=== PATIENT | male | born 2000 | race Caucasian/White ===

== ENCOUNTER 2018-02-15 12:50 | Inpatient (IN) | payer OTHER ==
--- NOTE | 2018-02-15 13:57 | ED ---
Psych HPI - General Source: patient, police, EMS, RN notes reviewed Mode of arrival: EMS Limitations: no limitations <Bal Chavarria - Last Filed: 02/15/18 14:33> <Tevin Ken - Last Filed: 02/15/18 14:41> - General Chief Complaint: Psychiatric Symptoms Stated Complaint: Petitioned Time Seen by Provider: 02/15/18 12:54 - History of Present Illness Initial Comments: This is a 18-year-old male presents emergency Department with police for psychiatric evaluation. Patient is being petition by family secondary to bizarre behavior. Patient currently is manic. Patient history is limited secondary to his flight of ideas. Patient denies being suicidal or homicidal denies drug use or alcohol abuse. He denies any physical complaints. (Bal Chavarria) - Related Data Allergies Allergy/AdvReac Type Severity Reaction Status Date / Time No Known Allergies Allergy Verified 02/15/18 12:56 Review of Systems ROS Other: All systems not noted in ROS Statement are negative. <Bal Chavarria - Last Filed: 02/15/18 14:33> ROS Other: All systems not noted in ROS Statement are negative. <Tevin Ken - Last Filed: 02/15/18 14:41> ROS Statement: Those systems with pertinent positive or pertinent negative responses have been documented in the HPI. Past Medical History Past Medical History: Unable to Obtain History of Any Multi-Drug Resistant Organisms: None Reported Past Psychological History: Anxiety Smoking Status: Current every day smoker Past Alcohol Use History: None Reported Past Drug Use History: Marijuana <Bal Chavarria - Last Filed: 02/15/18 14:33> General Exam Limitations: no limitations General appearance: alert, in no apparent distress Head exam: Present: atraumatic, normocephalic, normal inspection Eye exam: Present: normal appearance, PERRL, EOMI. Absent: scleral icterus, conjunctival injection, periorbital swelling ENT exam: Present: normal exam, normal oropharynx, mucous membranes moist Neck exam: Present: normal inspection. Absent: tenderness, meningismus, lymphadenopathy Respiratory exam: Present: normal lung sounds bilaterally. Absent: respiratory distress, wheezes, rales, rhonchi, stridor Cardiovascular Exam: Present: normal rhythm, tachycardia, normal heart sounds. Absent: systolic murmur, diastolic murmur, rubs, gallop, clicks GI/Abdominal exam: Present: soft, normal bowel sounds. Absent: distended, tenderness, guarding, rebound, rigid Neurological exam: Present: alert, oriented X3, CN II-XII intact, reflexes normal. Absent: motor sensory deficit Psychiatric exam: Present: manic, other (Flight of ideas) Skin exam: Present: warm, dry, intact, normal color. Absent: rash <Bal Chavarria - Last Filed: 02/15/18 14:33> Course <Bal Chavarria - Last Filed: 02/15/18 14:33> <Tevin Ken - Last Filed: 02/15/18 14:41> Vital Signs 02/15/18 02/15/18 12:56 13:09 Temperature 97.7 F Pulse Rate 111 H Respiratory 18 Rate Blood Pressure 155/85 O2 Sat by Pulse 100 Oximetry - Reevaluation(s) Reevaluation #1: 02/15/18 14:40 I did personally a [id number] evaluation the patient and do agree with the assessment and plan patient will be admitted he does demonstrate a marked flight of ideas. He also is perseverating. I did fill out a clinical certification. (Tevin Ken) Medical Decision Making <Bal Chavarria - Last Filed: 02/15/18 14:33> <Tevin Ken - Last Filed: 02/15/18 14:41> - Medical Decision Making 18-year-old male in for psychiatric evaluation. Patient was evaluated by EPS. Patient will be admitted for psychiatric care. (Bal Chavarria) - Lab Data Lab Results 02/15/18 Range/Units 13:36 Urine Opiates Screen Not Detected (NotDetected) Ur Oxycodone Screen Not Detected (NotDetected) Urine Methadone Screen Not Detected (NotDetected) Ur Propoxyphene Screen Not Detected (NotDetected) Ur Barbiturates Screen Not Detected (NotDetected) U Tricyclic Antidepress Not Detected (NotDetected) Ur Phencyclidine Scrn Not Detected (NotDetected) Ur Amphetamines Screen Not Detected (NotDetected) U Methamphetamines Scrn Not Detected (NotDetected) U Benzodiazepines Scrn Not Detected (NotDetected) Urine Cocaine Screen Not Detected (NotDetected) U Marijuana (THC) Screen Detected H (NotDetected) Disposition <Bal Chavarria - Last Filed: 02/15/18 14:33> <Tevin Ken - Last Filed: 02/15/18 14:41> Clinical Impression: Psychosis, Bipolar disorder Disposition: ADMITTED IP TO THIS HOSP Condition: Fair Referrals: None,Stated [Primary Care Provider] - 1-2 days
[2018-02-15 14:01] LABS: Amphetamine Screen,Urine Not Detected (NotDetected); Barbiturate Screen,Urine Not Detected (NotDetected); Benzodiazepines Screen,Urine Not Detected (NotDetected); Cocaine Screen,Urine Not Detected (NotDetected); Methadone Screen, Urine Not Detected (NotDetected); Opiate Screen,Urine Not Detected (NotDetected); Oxycodone Screen, Urine Not Detected (NotDetected); Phencyclidine Screen,Urine Not Detected (NotDetected); Tricyclic Antidepressant,Urine Not Detected (NotDetected); Urn Cannabinoid Scrn Detected (NotDetected)
[2018-02-15] MEDS ORDERED: ZIPRASIDONE 20 MG VIAL IM STA (15:24)
[2018-02-15] MEDS ORDERED: MAG HYDROX/AL HYDROX/SIMETH 30 ML CUP PO PRN (15:59)
[2018-02-15] MEDS ORDERED: MAGNESIUM HYDROXIDE 2,400 MG/10 ML CUP PO PRN (15:59)
[2018-02-15] MEDS ORDERED: ACETAMINOPHEN TAB 325 MG TAB PO PRN (15:59)
[2018-02-15 16:14] LABS: Appearance,Urine Clear (Clear); Bilirubin,Urine Negative (Negative); Blood,Urine Negative (Negative); Color,Urine Yellow; Glucose,Urine (UA) Negative (Negative); Hyaline Casts,Urine 11 /lpf (0-2); Ketones,Urine 2+ (Negative); Leukocyte Esterase,Urine Negative (Negative); Mucus,Urine Many /hpf; Nitrite,Urine Negative (Negative); PH, Urine 5.5 (5.0-8.0); Protein,Urine 1+ (Negative); RBC,Urine 1 /hpf (0-5); Specific Gravity,Urine 1.024 (1.001-1.035); WBC,Urine 1 /hpf (0-5)
[2018-02-15] MEDS ORDERED: ZIPRASIDONE 20 MG VIAL IM PRN (17:36)
[2018-02-15] MEDS ORDERED: HALOPERIDOL LACTATE 5 MG/ML 1 ML VIAL IM ONE (21:23)
[2018-02-15] MEDS: LORazepam 2 MG/ML INJ IM PRN (21:38)
[2018-02-16 09:28] LABS: Basophils # (A) 0.1 k/uL (0-0.2); Basophils % (A) 1 %; Eosinophils # (A) 0.2 k/uL (0-0.7); Eosinophils % (A) 2 %; HGB 17.8 gm/dL (13.0-17.5); Lymphocytes # (A) 1.4 k/uL (1.0-4.8); Lymphocytes % (A) 12 %; MCH 29.9 pg (25.0-35.0); MCHC 34.9 g/dL (31.0-37.0); MCV 85.7 fL (80.0-100.0); Mean Platelet Volume 7.2; Monocytes # (A) 0.6 k/uL (0-1.0); Monocytes % (A) 5 %; Neutrophils # (A) 9.1 k/uL (1.3-7.7); Neutrophils % (A) 78 %; Platelet Count 229 k/uL (150-450); RBC 5.96 m/uL (4.30-5.90); RDW 13.9 % (11.5-15.5); WBC 11.6 k/uL (4.0-11.0)
[2018-02-16] MEDS: NICOTINE 14MG/24HR PATCH TRANSDERM SCH (09:38)
[2018-02-16 09:56] LABS: ALT 24 U/L (21-72); AST 25 U/L (17-59); Albumin 4.7 g/dL (3.5-5.0); Alkaline Phosphatase 87 U/L (38-126); Anion Gap 14 mmol/L; Blood Urea Nitrogen 13 mg/dL (9-20); Calcium 10.4 mg/dL (8.4-10.2); Carbon Dioxide 29 mmol/L (22-30); Chloride 100 mmol/L (98-107); Glucose 99 mg/dL (74-99); Potassium 4.7 mmol/L (3.5-5.1); Sodium 143 mmol/L (137-145); Total Bilirubin 1.4 mg/dL (0.2-1.3)
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
[2018-02-16 12:15] LABS: Cholesterol 140 mg/dL (<200); HDL Cholesterol 35 mg/dL (40-60); LDL Cholesterol,Calculated 90 mg/dL (0-99); Triglycerides 73 mg/dL (<150)
[2018-02-16] MEDS: ARIPiprazole 15 MG TAB PO SCH (12:31)
[2018-02-16] MEDS: LORazepam 2 MG/ML INJ IM PRN (13:59)
[2018-02-16] MEDS: HALOPERIDOL LACTATE 5 MG/ML 1 ML VIAL IM PRN (13:59)
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
[2018-02-16] MEDS ORDERED: LORazepam 2 MG/ML INJ IM STA (14:39)
[2018-02-16] MEDS ORDERED: LORazepam 2 MG/ML INJ ONE (14:41)
[2018-02-16 21:13] LABS: Hemoglobin A1C 4.2 % (4.0-6.0)
[2018-02-17] MEDS: NICOTINE 14MG/24HR PATCH TRANSDERM SCH (08:43)
[2018-02-17] MEDS: ARIPiprazole 15 MG TAB PO SCH (08:43)
[2018-02-17 08:44] LABS: HCT 49.1 % (39.0-53.0); HGB 17.2 gm/dL (13.0-17.5); MCH 30.3 pg (25.0-35.0); MCV 86.6 fL (80.0-100.0); Mean Platelet Volume 7.9; Platelet Count 211 k/uL (150-450); RBC 5.67 m/uL (4.30-5.90); RDW 13.9 % (11.5-15.5); WBC 8.8 k/uL (4.0-11.0)
[2018-02-17] MEDS: LORazepam 1 MG TAB PO PRN ×2 (08:47→15:58)
--- NOTE | 2018-02-17 11:02 | P.PN ---
Progress Note - Text Interval history: The patient is found in the hallway he follows me to an interview room. Staff report the patient required a Haldol injection yesterday for agitated behavior. He has been under the delusional belief that his family members are here and that one of our social work staff is his girlfriend with his child. The patient has required frequent redirection. In our session he is psychotic still and makes several bizarre statements. He indicates he wants to be discharged. He reports being compliant with Abilify. Mental status exam: The patient is alert he has a disheveled appearance hygiene is impaired he is dressed in hospital attire. Initially he seated in the chair but frequently changes position. During interview he gets up and approaches me and has to be redirected. He describes grandiose type delusions bahai type delusions and paranoid thoughts. He is reporting no suicidal or homicidal ideation. He will use expletives several times in answering questions. Insight and judgment are poor. Affect is blunted during our session. Plan: The patient will continue his current psychotropic medications. We will monitor him for safety and encourage his participation in the milieu appropriately. Reality orientation is provided when possible. Vital signs reviewed.
[2018-02-17] MEDS: traZODone HCL 100 MG TAB PO PRN (20:49)
[2018-02-18] MEDS: ARIPiprazole 15 MG TAB PO SCH (08:11)
[2018-02-18] MEDS: NICOTINE 14MG/24HR PATCH TRANSDERM SCH (08:11)
[2018-02-18] MEDS: LORazepam 1 MG TAB PO PRN (09:31)
[2018-02-18] MEDS ORDERED: ARIPiprazole 5 MG TAB PO ONE (09:42)
--- NOTE | 2018-02-18 09:50 | P.PN ---
Progress Note - Text Interval history: The patient is found in the hallway he follows me to an interview room. The patient continues to verbalize a variety of delusional thoughts. These will range from being paranoid and persecutory in nature to grandiose to protestant preoccupation. He is difficult to direct in session. He demonstrates lability of affect. At times he appears to become verbally agitated but he demonstrates no physical agitation during our session. He reports he slept and he is eating. He has poor insight into his symptoms as he continues to request that he be discharged. Mental status exam: The patient is disheveled hygiene grooming are impaired. Eye contact is staring in nature. He demonstrates no abnormal involuntary movements. He is oriented to place is hospital and the date as February 18. Again affect is labile he demonstrates agitation frustration and at other times tearfulness. He reports no thoughts of self-harm or harm to others. Thought process is not well organized he demonstrates loose associations as part of his psychosis. Plan: The patient will continue on the Abilify we will titrate to 20 mg daily. We will monitor him for safety. We will provide reality orientation when possible. Vital signs reviewed.
[2018-02-18] MEDS: HALOPERIDOL 5 MG TAB PO PRN ×2 (09:59→17:09)
[2018-02-18] MEDS: traZODone HCL 100 MG TAB PO PRN (20:21)
[2018-02-19] MEDS: MELATONIN 3 MG TABLET PO PRN (01:43)
[2018-02-19] MEDS: LORazepam 1 MG TAB PO PRN ×3 (01:43→17:38)
[2018-02-19] MEDS: NICOTINE 14MG/24HR PATCH TRANSDERM SCH (08:19)
[2018-02-19] MEDS: HALOPERIDOL 5 MG TAB PO PRN (20:25)
--- NOTE | 2018-02-19 21:43 | PN ---
PROGRESS NOTE DATE OF SERVICE: 02/19/18. INTERVAL HISTORY: The patient is found in the hallway. He follows me to an interview room. The patient continues to demonstrate spontaneous symptoms of psychosis. He speaks of paranoid themes and yarsani preoccupation. He continues to reiterate his desire to be discharged, lacking insight into his current symptoms. Staff reports that the patient remains acutely psychotic, but there is mild improvement in that there has been a decrease in his physical agitation. MENTAL STATUS EXAM: The patient is alert. He has a disheveled appearance. He is directable, but requires prompting throughout the session. Eye contact is staring in nature. He frequently moves while seated in the chair. He reports a dysphoric mood. He demonstrates paranoid thinking and some yarsani grandiosity. He is reporting no thoughts of harming self or others. Thought processes not well organized. Insight and judgment are impaired. He remains alert. He demonstrates no verbal or physical aggressiveness. He demonstrates no abnormal involuntary movements. PLAN: The patient will continue on his current psychotropic medications. He has required p.r.n. Haldol within the last 24 hours. We will monitor him for safety and encourage his participation in milieu. It appears he has signed a deferral agreement. MMODL / IJN: [id number] /
[2018-02-19] MEDS: traZODone HCL 100 MG TAB PO PRN (21:54)
[2018-02-20] MEDS: LORazepam 1 MG TAB PO PRN ×2 (07:49→16:48)
[2018-02-20] MEDS: HALOPERIDOL 5 MG TAB PO PRN ×2 (07:49→16:48)
[2018-02-20] MEDS: NICOTINE 14MG/24HR PATCH TRANSDERM SCH (08:18)
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
[2018-02-20] MEDS: traZODone HCL 100 MG TAB PO PRN (21:23)
[2018-02-21] MEDS: NICOTINE 14MG/24HR PATCH TRANSDERM SCH (08:44)
[2018-02-21] MEDS: LORazepam 1 MG TAB PO PRN ×2 (08:45→19:40)
[2018-02-21] MEDS: HALOPERIDOL 5 MG TAB PO PRN ×2 (08:45→14:15)
--- NOTE | 2018-02-21 14:33 | P.PN ---
Progress Note - Text Progress Note Date: 02/21/18 Interval history: Patient seen in [facility] today for Dr. Antonio. He reports that his mind feels clearer, relays concerns about having cancer. He describes feeling sore and then more specifically describes that it's his arm. He makes reference to several family members that have cancer. He describes that he was having a lot of racing thoughts which brought him into the hospital. He does not voice any adverse psychotropic medication side effects other than may be some tiredness. Mental status exam: He is alert and cooperative with the interview. He seems to describe that his mind is clear. He describes a concern about having cancer. He denies any paranoid thoughts, denies any auditory hallucinations. He does not verbalize any thoughts of harm to self or others. He does not show any agitation. Plan: We'll maintain current psychotropic medications. We'll monitor for any medication side effects. We'll continue to cover this patient for Dr. Antonio through the weekend.
[2018-02-21] MEDS: traZODone HCL 100 MG TAB PO PRN (20:20)
[2018-02-22] MEDS: LORazepam 1 MG TAB PO PRN ×2 (08:16→18:21)
[2018-02-22] MEDS: NICOTINE 14MG/24HR PATCH TRANSDERM SCH (08:16)
[2018-02-22] MEDS: HALOPERIDOL 5 MG TAB PO PRN ×2 (14:38→18:56)
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
[2018-02-22] MEDS: traZODone HCL 100 MG TAB PO PRN (20:58)
[2018-02-22] MEDS: MELATONIN 3 MG TABLET PO PRN (21:21)
[2018-02-23] MEDS: NICOTINE 14MG/24HR PATCH TRANSDERM SCH (08:32)
[2018-02-23] MEDS: LORazepam 1 MG TAB PO PRN ×2 (08:48→16:50)
[2018-02-23] MEDS: HALOPERIDOL 5 MG TAB PO PRN (08:51)
--- NOTE | 2018-02-23 12:15 | P.PN ---
Progress Note - Text Progress Note Date: 02/23/18 Patient was seen for a follow-up examination on behalf of Dr. Antonio. Patient does not have any particular complaint. He talked about losing a child from his first love, planning on returning to live with his mother and then go to an apartment and stay with his friend by the name of Flash. He says he feels well and is hoping to talk about his discharge. He has been taking his medications and attends groups and socializes with some peers and interacts with staff. Does not have any adverse effects from his medications. This is a white ambulatory male with adequate hygiene. He is polite and cooperative. He does not show any psychomotor agitation or retardation. His speech is spontaneous, quite close, it relevant and irrational. He is not really able to engage in meaningful conversation. His mood is dull and affect is somewhat constricted in range. He appears to be quite psychotic and unable to attend to his needs independently. Plan: Continue Abilify, groups and other therapies.
[2018-02-23] MEDS: traZODone HCL 100 MG TAB PO PRN (21:15)
[2018-02-24] MEDS: NICOTINE 14MG/24HR PATCH TRANSDERM SCH (08:30)
--- NOTE | 2018-02-24 10:04 | P.PN ---
Progress Note - Text Interval history: The patient is found in group he follows me to an interview room. He reports his mood is stabilized and he would like to be discharged. He states that his mother has told him that I am undercover. He believes he has HIV because of bumps on the back of his tongue. He is concerned about 2 other male peers on this unit and states "I shouldn't listen to them". Staff reported he slept 6 hours last night. Vital signs are stable. He initially states he doesn't want to be on Abilify or Haldol. Later he states he's okay with continuing on Abilify and we discussed titrating the dose. He reports the Ativan makes him feel high and he does not plan to use that again. Mental status exam: The patient is alert he has a disheveled appearance. He has a staring eye contact. He frequently moves while seated in his chair. He will shake his right leg throughout the session. Since he has been here he demonstrates a more calm demeanor than when he first presented. Unfortunately he continues to still have paranoid and persecutory thoughts. He also has other delusions related to him expecting a child in getting soon. Insight and judgment impaired. He demonstrates no verbal or physical aggressiveness. He is reporting no thoughts of harming himself or others. He is endorsing no hallucinations. Plan: The patient will continue on the Abilify we will increase the dose to 30 mg daily. He did require a Haldol when necessary yesterday. We will continue to monitor him for safety. He has not yet stabilized in terms of his psychosis to discharge him home. He requires continued inpatient psychiatric care. He is encouraged to continue participating in groups.
[2018-02-24] MEDS ORDERED: ARIPiprazole 10 MG TAB PO ONE (10:15)
[2018-02-24] MEDS: LORazepam 1 MG TAB PO PRN ×2 (13:27→21:09)
[2018-02-24] MEDS: HALOPERIDOL 5 MG TAB PO PRN (14:20)
[2018-02-24] MEDS ORDERED: LORazepam 2 MG/ML INJ ONE (15:06)
[2018-02-24] MEDS ORDERED: LORazepam 2 MG/ML INJ IM STA (15:15)
[2018-02-24] MEDS: traZODone HCL 100 MG TAB PO PRN (21:09)
[2018-02-24] MEDS: MELATONIN 3 MG TABLET PO PRN (22:33)
[2018-02-25] MEDS: ARIPiprazole 15 MG TAB PO SCH (08:13)
[2018-02-25] MEDS: NICOTINE 14MG/24HR PATCH TRANSDERM SCH (08:13)
[2018-02-25] MEDS: LORazepam 1 MG TAB PO PRN ×2 (08:57→21:14)
--- NOTE | 2018-02-25 08:58 | P.PN ---
Progress Note - Text Interval history: The patient is found in the hallway he follows me to an interview room. He states that he is not going to get better "been around all of these crazy people". He does spontaneously report ongoing delusional thoughts. He speaks of being in love with 2 different females and is expecting a child. He endorses feelings of paranoia. Staff reported that he tried to climb over the restaurant front manager he states because of paranoid thoughts. He has been compliant with the Abilify. He did receive a dose of Haldol yesterday. Mental status exam: The patient is alert he is a disheveled appearance he is dressed in his own clothing. Eye contact is appropriate speech is fluent spontaneous nonpressured. He spontaneously reports delusional thoughts that are grandiose, erotomanic, paranoid. Thought process is not well organized. He is easily distractible. He is verbally directable in the session. Insight and judgment are poor. He appears to have little insight into his delusional thoughts. He is endorsing no hallucinations. He demonstrates no verbal or physical aggressiveness he demonstrates no abnormal involuntary movements. He reports no suicidal or homicidal ideation intent or plan. Plan: The patient will continue on the Abilify 30 mg daily we have Haldol by mouth and IM available as needed. We will continue to monitor him for safety and provide reality orientation when possible. His symptoms of psychosis remain acute he requires continued psychiatric hospitalization. It would be expected he would decompensate if discharged from the hospital at this time.
[2018-02-25] MEDS: HALOPERIDOL 5 MG TAB PO PRN (12:47)
[2018-02-25] MEDS: traZODone HCL 100 MG TAB PO PRN (21:14)
[2018-02-26] MEDS: ARIPiprazole 15 MG TAB PO SCH (08:14)
[2018-02-26] MEDS: NICOTINE 14MG/24HR PATCH TRANSDERM SCH (08:14)
[2018-02-26] MEDS: LORazepam 1 MG TAB PO PRN ×2 (08:48→17:48)
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
[2018-02-26] MEDS: HALOPERIDOL 5 MG TAB PO SCH ×2 (11:23→13:33)
[2018-02-26] MEDS: HALOPERIDOL LACTATE 5 MG/ML 1 ML VIAL IM PRN (19:40)
[2018-02-26] MEDS: traZODone HCL 100 MG TAB PO PRN (20:41)
[2018-02-27] MEDS: HALOPERIDOL 5 MG TAB PO SCH ×2 (08:05→20:07)
[2018-02-27] MEDS: NICOTINE 14MG/24HR PATCH TRANSDERM SCH (08:05)
[2018-02-27] MEDS: ARIPiprazole 15 MG TAB PO SCH (08:05)
[2018-02-27] MEDS: LORazepam 1 MG TAB PO PRN ×2 (09:02→19:17)
[2018-02-27] MEDS: HALOPERIDOL 5 MG TAB PO PRN (09:02)
[2018-02-27 09:52] VITALS: BMI 27.8
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
[2018-02-27] MEDS: PALIPERIDONE 3 MG TAB.ER.24 PO SCH (20:07)
[2018-02-27] MEDS: traZODone HCL 100 MG TAB PO PRN (21:04)
[2018-02-28] MEDS: HALOPERIDOL 5 MG TAB PO SCH ×3 (08:08→22:13)
[2018-02-28] MEDS: ARIPiprazole 15 MG TAB PO SCH (08:08)
[2018-02-28] MEDS: NICOTINE 14MG/24HR PATCH TRANSDERM SCH (08:08)
[2018-02-28] MEDS: LORazepam 1 MG TAB PO PRN (13:32)
--- NOTE | 2018-02-28 16:31 | P.PN ---
Progress Note - Text Progress Note Date: 02/28/18 Interval history: Patient was seen today. He reports being compliant with his medications. He reports Abilify helps him with his anxiety, he stated he no longer has sweaty palms. He reports Haldol keeps his mood stable. He reports good sleep and appetite. He reports going to all his groups. He claims to have learned about honesty and integrity in his groups. He claims his uncle is one of the staff members here in the hospital. he reports his uncle is trying to keep him hospitalized. He states his uncle does not like his family. He reports he will be going to court soon, to change his guardianship from his father to his mother. He claims his father is taking on his Social Security money and is not giving him any. He claims his father lives in [place]. He reports Haldol is making him feel tired. He denies current symptoms of depression. Mental status exam: 18-year-old male, appears his stated age and fair grooming and hygiene. He is pleasant and cooperative. No abnormal movements noted. She is slow volume rate and tone. His thought process is tangential. His mood is reported as good and affect constricted. He denies current auditory or visual hallucinations. He denies paranoia. He made several delusional statements as noted above. He is alert and oriented 4. He denies current suicidal or homicidal ideations. His insight and judgment are improving. Plan: He responded well to his current medications. He is not agitated or aggressive. Continue invega and Abilify as prescribed. Continue Haldol. Negative for symptoms.
[2018-02-28] MEDS: traZODone HCL 100 MG TAB PO PRN (21:00)
[2018-02-28] MEDS: PALIPERIDONE 3 MG TAB.ER.24 PO SCH (21:00)
[2018-02-28] MEDS: MELATONIN 3 MG TABLET PO PRN (22:02)
[2018-03-01] MEDS: NICOTINE 14MG/24HR PATCH TRANSDERM SCH (07:57)
[2018-03-01] MEDS: HALOPERIDOL 5 MG TAB PO SCH ×2 (07:57→21:02)
[2018-03-01] MEDS: ARIPiprazole 15 MG TAB PO SCH (07:57)
[2018-03-01] MEDS: LORazepam 1 MG TAB PO PRN (17:15)
--- NOTE | 2018-03-01 17:59 | P.PN ---
Progress Note - Text Progress Note Date: 03/01/18 Interval history: Patient was seen today. He reports feeling better. he claims to have made peace with his girlfriend. He reprots he wants to go back to live with is dad in [place]. He reports being compliant with his medications. He reports good sleep and appetite. He reports going to all his groups. He denies current symptoms of depression. Mental status exam: 18-year-old male, appears his stated age and fair grooming and hygiene. He is pleasant and cooperative. No abnormal movements noted. Speech and thought process are tangential and disorganized. His mood is reported as good and affect constricted. He denies current auditory or visual hallucinations. He denies paranoia. He made several delusional statements and apologizes repeatedly. He is alert and oriented 4. He denies current suicidal or homicidal ideations. His insight and judgment are improving. Plan: Continue invega and Abilify as prescribed. Continue Haldol. Monitor for symptoms.
[2018-03-01] MEDS: PALIPERIDONE 3 MG TAB.ER.24 PO SCH (21:00)
[2018-03-01] MEDS: traZODone HCL 100 MG TAB PO PRN (21:01)
[2018-03-01] MEDS: MELATONIN 3 MG TABLET PO PRN (22:37)
[2018-03-02] MEDS: LORazepam 2 MG/ML INJ IM PRN ×3 (01:42→19:10)
[2018-03-02] MEDS: HALOPERIDOL 5 MG TAB PO SCH (09:25)
[2018-03-02] MEDS ORDERED: ARTIFICIAL TEARS-HYPROMELLOSE DROPS 15 ML BTL BOTH EYES PRN (09:25)
[2018-03-02] MEDS: NICOTINE 14MG/24HR PATCH TRANSDERM SCH (09:25)
[2018-03-02] MEDS: ARIPiprazole 15 MG TAB PO SCH (09:27)
[2018-03-02] MEDS ORDERED: ARIPiprazole 10 MG TAB PO ONE (09:30)
--- NOTE | 2018-03-02 09:32 | P.PN ---
Progress Note - Text Interval history: The patient is found in the hallway he follows me to an interview room. Staff report the patient continues to verbalize a variety of delusional thoughts. He states this morning that his mother is petitioning for guardianship and he is comfortable with that decision. He reports that he slept throughout the night staff reported he slept 6 hours. Appetite stable. He reports feeling groggy this morning. Mental status exam: The patient is alert but tired appearing. He is more withdrawn. He has less spontaneous speech. He seems to have some thought blocking as he has to repeat questions I asked him before he answers them. He is reporting no hallucinations but continues to have reportedly variety of delusional thoughts. Insight and judgment are impaired. He demonstrates no verbal or physical aggressiveness. He demonstrates no abnormal involuntary movements. Affect is flat. Without any agitation he gets up and ends the session early. Plan: The patient will continue on the invega we will titrate the dose to 6 mg at bedtime. We will give him one last dose of Abilify 10 mg today. It appears he refused the Haldol scheduled dose yesterday. He verbalizes a willingness to continue with the invega. We will monitor him for safety and provide reality orientation when possible. He continues to demonstrate significant symptoms of psychosis and requires continued hospitalization.
[2018-03-02] MEDS: HALOPERIDOL LACTATE 5 MG/ML 1 ML VIAL IM PRN ×2 (12:06→19:10)
[2018-03-02] MEDS ORDERED: LORazepam 2 MG/ML INJ IM STA ×2 (16:35→19:19)
[2018-03-02] MEDS ORDERED: HALOPERIDOL LACTATE 5 MG/ML 1 ML VIAL IM STA ×2 (16:35→19:18)
[2018-03-02] MEDS ORDERED: LORazepam 2 MG/ML INJ ONE (19:23)
[2018-03-02] MEDS: PALIPERIDONE 6 MG TAB.ER.24 PO SCH (21:57)
[2018-03-03] MEDS: NICOTINE 14MG/24HR PATCH TRANSDERM SCH (08:46)
[2018-03-03] MEDS: HALOPERIDOL LACTATE 5 MG/ML 1 ML VIAL IM PRN ×2 (10:14→14:56)
[2018-03-03] MEDS: LORazepam 2 MG/ML INJ IM PRN ×2 (10:14→20:05)
[2018-03-03] MEDS: DIVALPROEX 500 MG TABLET.DR PO SCH ×2 (10:22→21:56)
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
[2018-03-03] MEDS ORDERED: diphenhydrAMINE 50 MG/ML 1 ML VIAL IM STA (14:47)
[2018-03-03] MEDS ORDERED: HALOPERIDOL LACTATE 5 MG/ML 1 ML VIAL IM STA (19:57)
[2018-03-03] MEDS: PALIPERIDONE 6 MG TAB.ER.24 PO SCH (20:26)
[2018-03-03] MEDS ORDERED: traZODone HCL 100 MG TAB PO STA (20:31)
[2018-03-03] MEDS: traZODone HCL 100 MG TAB PO PRN (20:34)
[2018-03-03] MEDS: MELATONIN 3 MG TABLET PO PRN (20:34)
--- NOTE | 2018-03-03 20:44 | XR ---
EXAMINATION TYPE: XR hand limited LT DATE OF EXAM: 03/03/2018 CLINICAL HISTORY: pain TECHNIQUE: Frontal, lateral images of the left hand are obtained. COMPARISON: None. FINDINGS: There is no acute fracture/dislocation evident. The joint spaces appear within normal limi ts. The overlying soft tissue appears unremarkable. IMPRESSION: There is no acute fracture or dislocation. ICD 10 NO FRACTURE, INITIAL EVALUATION
[2018-03-04] MEDS: NICOTINE 14MG/24HR PATCH TRANSDERM SCH (09:40)
[2018-03-04] MEDS: DIVALPROEX 500 MG TABLET.DR PO SCH ×2 (09:40→20:15)
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
[2018-03-04] MEDS: LORazepam 1 MG TAB PO PRN (17:09)
[2018-03-04] MEDS: HALOPERIDOL 5 MG TAB PO PRN (17:09)
[2018-03-04] MEDS: PALIPERIDONE 3 MG TAB.ER.24 PO SCH (20:15)
[2018-03-04] MEDS: MELATONIN 3 MG TABLET PO PRN (21:17)
[2018-03-05] MEDS: NICOTINE 14MG/24HR PATCH TRANSDERM SCH (09:14)
[2018-03-05] MEDS: DIVALPROEX 500 MG TABLET.DR PO SCH ×2 (09:15→20:35)
--- NOTE | 2018-03-05 09:19 | P.PN ---
Progress Note - Text Interval history: The patient is found in the hallway he follows me to the library to speak. He remains on a one-to-one with security. The patient states that he is having difficulty sleeping at night without the trazodone. We discussed restarting that medication. He has been compliant with the invega. Staff reported the patient him a straight no aggressiveness yesterday. He continues to express delusional thoughts. Mental status exam: The patient is alert but tired appearing. He has a disheveled appearance. Hygiene is adequate as he did shower this morning. He is dressed in his own clothing. Initially he seated in the chair he stands walks about the room and is seated again. He terminates the session by getting up and asking to leave. Today he states he is hearing no hallucinations however that will occur at nighttime. He is endorsing no command hallucinations at this time. He continues to express disorganized delusions. He is reporting no thoughts of harming himself or others. He demonstrates no verbal or physical aggressiveness. Insight and judgment continue to be l impaired. He is oriented to person place and date. Plan: We will continue his psychotropic medications as written. He requires continued inpatient psychiatric hospitalization due to his acute psychosis. We will closely monitor his behavior and continue to assess the need for one-to- one supervision. We will continue one-to-one supervision at this time.
[2018-03-05] MEDS: LORazepam 1 MG TAB PO PRN (13:15)
[2018-03-05] MEDS: MELATONIN 3 MG TABLET PO PRN (20:15)
[2018-03-05] MEDS: traZODone HCL 100 MG TAB PO SCH (20:36)
[2018-03-05] MEDS: PALIPERIDONE 3 MG TAB.ER.24 PO SCH (20:36)
[2018-03-06] MEDS: DIVALPROEX 500 MG TABLET.DR PO SCH ×2 (08:21→20:08)
[2018-03-06] MEDS: NICOTINE 14MG/24HR PATCH TRANSDERM SCH (08:21)
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
[2018-03-06] MEDS: HALOPERIDOL 5 MG TAB PO PRN (12:08)
[2018-03-06] MEDS: LORazepam 1 MG TAB PO PRN (13:55)
[2018-03-06] MEDS: PALIPERIDONE 3 MG TAB.ER.24 PO SCH (20:08)
[2018-03-06] MEDS: traZODone HCL 100 MG TAB PO SCH (20:08)
[2018-03-06] MEDS: MELATONIN 3 MG TABLET PO PRN (21:21)
[2018-03-07] MEDS: NICOTINE 14MG/24HR PATCH TRANSDERM SCH (09:17)
[2018-03-07] MEDS: DIVALPROEX 500 MG TABLET.DR PO SCH ×2 (09:18→20:06)
--- NOTE | 2018-03-07 09:19 | P.PN ---
Progress Note - Text Progress Note Date: 03/07/18 Interval History: Patient is a 18-year-old male who is being seen [place] [facility] [place]. Patient remains on a one-to-one with security. Patient reported to me that he slept well last evening and he has no side effects from the medication. Patient states that he is feeling better, less agitated. Patient denies any suicidal ideation. Patient states that he thinks he is a little oversedated as he is sleeping too much during the day. Patient complained of a plantars wart on his foot. Mental Status: Appearance/Attitude: Patient is casually dressed, appears slightly sedated makes good eye contact and was cooperative. Behavior: Patient did not display any psychomotor agitation or retardation, he appears slightly slowed and he sat quietly during the interview Speech/Language: Patient responded to questions with very brief answers, he spoke in a normal volume and rhythm and was coherent Thought Process: Patient's responses were goal directed however they were very brief and non-elaborative Thought Content: Patient denied auditory or visual hallucinations and no delusions or paranoid ideation were elicited however the patient's responses to most questions were very brief and non-elaborative. He complained of feeling overly sedated during the day because he was sleeping a lot, stated that he slept well last evening and that there were no changes in his appetite. Patient stated that he was not feeling agitated. Suicidal/Homicidal Ideation: Patient denied any current suicidal or homicidal ideation Sensorium/Cognition: Patient was alert and oriented to person and situation Mood/Affect: Patient's mood was guarded and his affect is blunted Insight/Judgment: Patient's insight and judgment are limited Assessment: [Patient was seen today, there've been no episodes of agitation and he received only 1 when necessary of Haldol orally yesterday. Patient appears slightly sedated, he is sleeping at night and reports that he is feeling less agitated. Per security who is on a one-to-one with the patient, the patient continues to feel that he is going to be attacked at night. Patient was guarded during the interview in his responses were very brief and non- elaborative. Plan: Patient will continue on Depakote 500 mg twice a day and Invega 9 mg at bedtime, he continues to have as needed medication. Patient continues to require hospitalization and continues to be on a one-to-one with security.
[2018-03-07] MEDS: LORazepam 1 MG TAB PO PRN (13:09)
[2018-03-07] MEDS: traZODone HCL 100 MG TAB PO SCH (20:06)
[2018-03-07] MEDS: PALIPERIDONE 3 MG TAB.ER.24 PO SCH (20:07)
[2018-03-07] MEDS: MELATONIN 3 MG TABLET PO PRN (21:14)
[2018-03-08] MEDS: DIVALPROEX 500 MG TABLET.DR PO SCH ×2 (08:45→20:04)
[2018-03-08] MEDS: NICOTINE 14MG/24HR PATCH TRANSDERM SCH (08:45)
--- NOTE | 2018-03-08 10:29 | P.PN ---
Progress Note - Text Progress Note Date: 03/08/18 Interval History: Patient is a 18-year-old male who was seen in weekend coverage and he states that he feels his brain is back, he states his thinking is more organized. Patient states that he also wants to return to [place] to live with his father. Patient states that he is sleeping and eating well. He denied any suicidal thoughts and denied that he was feeling paranoid. Patient reports that he feels he is doing much better. He had no other complaints at this time. Mental Status: Appearance/Attitude: Patient is casually dressed, makes good eye contact and appears slightly drowsy and is cooperative. Behavior: Patient did not exhibit any psychomotor agitation or retardation. Speech/Language: Patient's speech was spontaneous and normal volume and rhythm and he was coherent Thought Process: Patient was goal-directed there is no evidence of loose association or flight of ideas Thought Content: Patient denied auditory or visual hallucinations and no delusions or paranoid ideation were elicited. Patient denied that he feels that anyone is trying to hurt him here, he stated that he is not feeling agitated and stated that "my brain is back". Patient stated that his thoughts are more organized, he reported no difficulty sleeping or eating. He states that he is attending some of the groups and activities. Patient reported that he wanted to discuss discharge and wishes to move to [place] to live with his father. He reports his appetite is good. Suicidal/Homicidal Ideation: Patient denied any current suicidal or homicidal ideation Sensorium/Cognition: Patient is alert and oriented to person, place, and time Mood/Affect: Patient's mood is slightly restricted and his affect is blunted Insight/Judgment: Patient's insight and judgment are limited Assessment: Patient continues on a one-to-one with security, patient has not received any as needed Haldol since the fourth. Patient has not exhibited any agitated or threatening behavior on the unit. He has been attending some of the groups and activities. Patient stated to me that he was not suicidal or homicidal and denied hearing voices or having any paranoid ideation. Patient appears slightly sedated however patient did not complain of this. 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 Patient stated his phone number was [phone]. Plan: Patient continue on his current medications of Invega 9 mg at bedtime and Depakote 500 mg twice a day. Patient will continue on a one-to-one with security. Patient continues to require hospitalization to further stabilize his mood and behavior.
[2018-03-08] MEDS: LORazepam 1 MG TAB PO PRN (13:06)
[2018-03-08] MEDS: HALOPERIDOL 5 MG TAB PO PRN (15:12)
[2018-03-08] MEDS: PALIPERIDONE 3 MG TAB.ER.24 PO SCH (20:04)
[2018-03-08] MEDS: traZODone HCL 100 MG TAB PO SCH (20:05)
[2018-03-08] MEDS: MELATONIN 3 MG TABLET PO PRN (21:11)
[2018-03-09] MEDS: DIVALPROEX 500 MG TABLET.DR PO SCH ×2 (08:46→20:09)
[2018-03-09] MEDS: NICOTINE 14MG/24HR PATCH TRANSDERM SCH (08:46)
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
[2018-03-09 12:13] LABS: Valproic Acid (Depakene) 71.8 ug/mL
[2018-03-09] MEDS: PALIPERIDONE 3 MG TAB.ER.24 PO SCH (20:07)
[2018-03-09] MEDS: traZODone HCL 100 MG TAB PO SCH (20:09)
[2018-03-09] MEDS: MELATONIN 3 MG TABLET PO PRN (21:11)
[2018-03-09] MEDS: LORazepam 1 MG TAB PO PRN (22:13)
[2018-03-10] MEDS: DIVALPROEX 500 MG TABLET.DR PO SCH ×2 (08:18→20:59)
[2018-03-10] MEDS: NICOTINE 14MG/24HR PATCH TRANSDERM SCH (08:18)
--- NOTE | 2018-03-10 10:20 | P.PN ---
Progress Note - Text Interval history: The patient is found in the hallway he approaches me to speak. He remains on one-to-one supervision was security. He states his mood is good. He requests that we contact his father 2 days prior to his discharge so his father can drive up from [place]. The patient states he is doing well he feels safe and has no concerns of others trying to harm him. He indicates that he slept last night. He has no questions or concerns regarding his medication. Depakote level was 71.8 liver enzymes are within normal limits. He did not receive any Haldol yesterday his last dose was Friday. Mental status exam: The patient is alert he is dressed in his own clothing he has a disheveled appearance. He is cooperative he demonstrates no agitated speech or behavior. He reports no thoughts of harming himself or others. He does continue to have the same delusional thinking as noted yesterday. They range from confucianism type, grandiose, to paranoid in nature. He speaks of these delusional thoughts less spontaneously today. Insight and judgment impaired. He demonstrates no abnormal involuntary movements. He remains oriented to person place and date. Affect remains bland. Plan: The patient will continue on his current medication. We will consider titrating the Depakote if needed. We are allowing the invega time to demonstrate efficacy. There has been a reduction in agitated behavior he still remains psychotic. We will continue to assess him for safety and for the need of one-to-one supervision was security. He is not appropriate for discharge at this time.
[2018-03-10] MEDS: LORazepam 1 MG TAB PO PRN (19:56)
[2018-03-10] MEDS: traZODone HCL 100 MG TAB PO SCH (20:59)
[2018-03-10] MEDS: PALIPERIDONE 3 MG TAB.ER.24 PO SCH (20:59)
[2018-03-10] MEDS: MELATONIN 3 MG TABLET PO PRN (21:00)
[2018-03-10] MEDS: HALOPERIDOL 5 MG TAB PO PRN (22:49)
[2018-03-11] MEDS: DIVALPROEX 500 MG TABLET.DR PO SCH ×2 (08:34→20:48)
[2018-03-11] MEDS: NICOTINE 14MG/24HR PATCH TRANSDERM SCH (08:34)
--- NOTE | 2018-03-11 09:56 | P.PN ---
Progress Note - Text Interval history: The patient is found in the hallway he follows me to the library to speak. He remains on one-to-one supervision with security. He states that he is in his groove. 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 He states he needs to stay clean from all drugs. Staff report that the patient did require his when necessary Haldol. He didn't demonstrate any agitation however he seemed more delusional at the time. Mental status exam: The patient is alert he is a disheveled appearance he is dressed in his own clothing. He indicates his mood is fine. He continues to inquire about a discharge date. With me he does not spontaneously speak of delusional themes. He does tend to verbalize goals more throughout the day per staff. He is reporting no suicidal or homicidal thoughts. In terms of thought process he is more linear this morning and does not appear hypomanic or manic. He demonstrates no verbal or physical aggressiveness. He demonstrates no abnormal involuntary movements. Insight and judgment still limited. Plan: The patient will continue on the invega we will titrate to 12 mg at bedtime to maximize the benefit of that medication in addressing his delusional thoughts. Continue Depakote as written and trazodone as written. We will continue to monitor him for safety. In order to proceed with discharge planning we will need to see a reduction in the delusional thinking. He requires continued hospitalization. Vital signs reviewed.
[2018-03-11] MEDS: PALIPERIDONE 6 MG TAB.ER.24 PO SCH (20:12)
[2018-03-11] MEDS: LORazepam 1 MG TAB PO PRN (20:14)
[2018-03-11] MEDS: traZODone HCL 100 MG TAB PO SCH (20:48)
[2018-03-11] MEDS: MELATONIN 3 MG TABLET PO PRN (21:11)
[2018-03-12] MEDS: NICOTINE 14MG/24HR PATCH TRANSDERM SCH (10:03)
[2018-03-12] MEDS: DIVALPROEX 500 MG TABLET.DR PO SCH ×2 (10:03→21:44)
--- NOTE | 2018-03-12 12:51 | P.PN ---
Progress Note - Text Progress Note Date: 03/12/18 Interval History: Patient is a 18-year-old male is being seen in coverage for Dr. Antonio. Patient is currently on a one-to-one with staff. Patient came to the office and stated that he is feeling better on the medication, he thinks that they are working well for him. Patient did not voluntarily discuss any delusional ideation. Patient stated that he wants to go back to [place] to live. Patient states that he needed to change the way he thinks about his sister even though his parents gave him the go ahead, patient was unable to elaborate on this with me other than stating that he is not ready to get and needs to be on his own and his own life. Patient states that he is eating well and sleeping well. Mental Status: Appearance/Attitude: Patient is dressed in casual clothing, his grooming is adequate and he was cooperative, patient made good eye contact Behavior: Patient did not display any psychomotor agitation or retardation. Speech/Language: Patient's speech was spontaneous of normal volume and rhythm and he is coherent Thought Process: Patient responded to most questions in a goal-directed fashion , he was focused mainly on returning to [place] to live, there is no evidence of loose associations Thought Content: Patient denied auditory or visual hallucinations and no delusions were elicited during the interview. Patient states that he is watching television, attending groups and activities and states that he's been sleeping and eating well. He reports that he is feeling better on the medication and thinks that they are working well for him. Suicidal/Homicidal Ideation: Patient denied any suicidal or homicidal ideation at this time. Sensorium/Cognition: Patient is alert and oriented to person, situation and further testing was not performed Mood/Affect: Patient's mood was cooperative and his affect was slightly blunted Insight/Judgment: Patient's insight and judgment are impaired Assessment: Patient came to the interview room and stated that the medications are working, he thought his focus had improved, he thought that he was doing much better on them. Patient is not required any when necessary Haldol since March 10. Patient has been attending some groups and activities. He is currently on a one-to-one with staff now. Per staff there have been no incidents of aggressive or threatening behavior. Should be noted that the patient's heart rate has been elevated for the last several days. Plan: Patient will continue on his current medications, he is not reporting any side effects none were noted on exam. Patient continues to require hospitalization to further stabilize his mood and psychotic symptoms.
[2018-03-12] MEDS: PALIPERIDONE 6 MG TAB.ER.24 PO SCH (20:18)
[2018-03-12] MEDS: traZODone HCL 100 MG TAB PO SCH (21:44)
--- NOTE | 2018-03-12 21:55 | P.PN ---
Subjective Progress Note Date: 03/12/18 Principal diagnosis: Was asked to evaluate the patient for tachycardia patient is not very great historian states that he has been having chest pains and shortness of breath over several months but the patient is not a reliable historian does not appear to be in distress the patient was ambulating without any significant distress We will order EKG cardiac enzymes and d-dimer If d-dimer is positive considering doing get computed tomography scan of the lungs to rule out PE If the patient continues to be tachycardia then consider a cardiology consult in a.m. May also considering doing an echocardiogram if continued to be tachycardic The likely cause of this tachycardia is medication induced the patient is on medication that has tachycardia as an adverse effect Objective - Vital Signs Vital signs: Vital Signs Temp 98 F 03/11/18 07:01 Pulse 108 H 03/12/18 21:45 Resp 15 03/12/18 20:13 BP 134/95 03/12/18 20:13 Pulse Ox 100 03/12/18 20:13 Intake & Output 03/12/18 03/12/18 03/13/18 06:59 18:59 06:59 Weight 93.3 kg - Labs CBC & Chem 7: 02/17/18 08:12 02/16/18 09:16
[2018-03-12] MEDS: MELATONIN 3 MG TABLET PO PRN (22:08)
[2018-03-12] MEDS: LORazepam 1 MG TAB PO PRN (23:17)
[2018-03-13] MEDS: NICOTINE 14MG/24HR PATCH TRANSDERM SCH (08:09)
[2018-03-13] MEDS: DIVALPROEX 500 MG TABLET.DR PO SCH ×2 (08:09→21:07)
--- NOTE | 2018-03-13 09:25 | P.PN ---
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 He remains on one-to-one supervision with unit staff. He reports that his mood is good he states he feels back to normal. He vacillates back and forth as to whether or not he wants to stay in [place] or reside with his father back in [place]. He has no questions or concerns regarding his medication. It seems he has not needed the Haldol prn since the eighth. He reports sleeping at night appetite is stable. He continues to verbalize a plan of trying to stay clean and get employment after discharge. Mental status exam: The patient is alert but demonstrate psychomotor slowing. Eye contact is appropriate. He does have some spontaneous speech. He feels that he is back to normal he would like to be discharged and frequently raises that concern. He demonstrates no verbal or physical aggressiveness. He demonstrates no abnormal involuntary movements. Eye contact is appropriate. He demonstrates no pressured speech. He denies having any auditory or visual hallucinations he denies having any suicidal or homicidal ideation intent or plan. Delusional thought is suspected to continue he is just not verbalizing and at this point. He is oriented to person and place month and year, he incorrectly name the day the week as Friday and the date as the . Plan: The patient will continue on the Invega and Depakote. I will confer with the treatment team this morning regarding his behavior and the ongoing need for one-to-one supervision. He has not demonstrated any agitated behavior and numerous days. He has not needed the Haldol since the eighth. We will monitor him for safety. Vital signs are reviewed his heart rate is 72 this morning. Internal medicine was consulted regarding his tachycardia. EKG was performed which I will review. He requires continued psychiatric hospitalization at this point.
[2018-03-13] MEDS: PALIPERIDONE 6 MG TAB.ER.24 PO SCH (21:07)
[2018-03-13] MEDS: traZODone HCL 100 MG TAB PO SCH (21:07)
[2018-03-13] MEDS: MELATONIN 3 MG TABLET PO PRN (21:08)
[2018-03-14] MEDS: LORazepam 1 MG TAB PO PRN (00:10)
[2018-03-14] MEDS: NICOTINE 14MG/24HR PATCH TRANSDERM SCH (11:15)
[2018-03-14] MEDS: DIVALPROEX 500 MG TABLET.DR PO SCH ×2 (11:15→21:22)
--- NOTE | 2018-03-14 12:17 | P.PN ---
Progress Note - Text Progress Note Date: 03/14/18 Interval history: Patient seen in cross coverage today. He reports that his mood is doing well. He relates that he slept better last night. He does describe some difficulty falling asleep inquires regarding his trazodone being increased. He states that he is taking his medications as prescribed. Mental status exam: He is seen with one-to-one staff present. He does not show any current agitation. He describes his mood is doing well. He denies any hallucinations and denies any thoughts of harm to self or others. Plan: We'll maintain current psychotropic medication regimen. We'll continue to monitor his ongoing response and monitor for any side effects. We'll continue to monitor how he is doing with sleep. Continue to cover this patient through the weekend.
[2018-03-14] MEDS: PALIPERIDONE 6 MG TAB.ER.24 PO SCH (21:22)
[2018-03-14] MEDS: traZODone HCL 100 MG TAB PO SCH (21:59)
[2018-03-14] MEDS: MELATONIN 3 MG TABLET PO PRN (22:56)
[2018-03-15] MEDS: LORazepam 1 MG TAB PO PRN ×2 (00:29→21:37)
[2018-03-15] MEDS: NICOTINE 14MG/24HR PATCH TRANSDERM SCH (09:14)
[2018-03-15] MEDS: DIVALPROEX 500 MG TABLET.DR PO SCH ×2 (09:14→21:36)
--- NOTE | 2018-03-15 15:49 | P.PN ---
Progress Note - Text Progress Note Date: 03/15/18 However history: Patient seen with one-to-one staff present. He is seen in cross coverage again today. He says he slept at least 8 hours last night. He is seems to be eating well. He does not seem to voice any adverse psychotropic medication side effects. Mental status exam: He is alert and cooperative. His thought processes show some disorganization. His mood is described as "pleasant." His affect is restricted overall. He denies any hallucinations. He denies any thoughts of harm to self or others. He does not show any agitation. Plan: Patient will be maintained on current psychotropic medication regimen. We 'll continue to monitor for any medication side effects and monitor his ongoing response to treatment.
[2018-03-15] MEDS: PALIPERIDONE 6 MG TAB.ER.24 PO SCH (21:36)
[2018-03-15] MEDS: traZODone HCL 100 MG TAB PO SCH (21:36)
[2018-03-15] MEDS: MELATONIN 3 MG TABLET PO PRN (22:34)
[2018-03-16] MEDS: NICOTINE 14MG/24HR PATCH TRANSDERM SCH (09:16)
[2018-03-16] MEDS: DIVALPROEX 500 MG TABLET.DR PO SCH ×2 (09:17→20:55)
[2018-03-16] MEDS: LORazepam 1 MG TAB PO PRN ×2 (09:18→19:24)
--- NOTE | 2018-03-16 09:57 | P.PN ---
Progress Note - Text Interval history: The patient is found in his room he follows me to an interview room. He continues to have one-to-one supervision. Unit staff reported that the patient did not demonstrate any physical aggressiveness over the weekend. We discussed the possibility of removing one-to-one supervision. The patient has maintained compliance with the Depakote and invega. He is occasionally using Ativan. No Haldol use since the eighth. He reports his mood is "getting better". He states he has no thoughts of harming others. No thoughts of harming himself. He does continue to describe some delusional thought content. He is endorsing no hallucinations. Mental status exam: The patient is alert he is dressed in his own clothing he has a disheveled appearance hygiene and adequate. Eye contact is appropriate. Speech is spontaneous fluent. He demonstrates some psychomotor slowing. He denies having any suicidal or homicidal ideation intent or plan. He is endorsing no auditory or visual hallucinations. He does continue to describe some disorganized delusional thought content. He demonstrates no abnormal involuntary movements. He remains oriented to person place and date. Insight and judgment slowly improving. Plan: The patient will continue on his current medications. We will discontinue the one-to-one supervision and continue general safety precautions. We will monitor him for safety. He does require continued psychiatric hospitalization due to his symptoms of psychosis. Vital signs reviewed.
[2018-03-16] MEDS: HALOPERIDOL 5 MG TAB PO PRN (19:24)
[2018-03-16] MEDS: traZODone HCL 100 MG TAB PO SCH (20:55)
[2018-03-16] MEDS: MELATONIN 3 MG TABLET PO PRN (20:55)
[2018-03-16] MEDS: PALIPERIDONE 6 MG TAB.ER.24 PO SCH (20:55)
[2018-03-17] MEDS: NICOTINE 14MG/24HR PATCH TRANSDERM SCH (09:40)
[2018-03-17] MEDS: DIVALPROEX 500 MG TABLET.DR PO SCH ×2 (09:40→22:01)
--- NOTE | 2018-03-17 11:57 | P.PN ---
Progress Note - Text Interval history: The patient is found in the hallway he follows me to an interview room. He has successfully remained off of one-to-one supervision without incident yesterday. Staff continue to report the patient is making delusional statements but he has not demonstrated any aggressive behavior. He has been compliant with his medication. He continues to vacillate between going back to [place] and staying with his mother locally. He has no questions or concerns regarding his medication. Mental status exam: The patient is alert he is dressed in his own clothing he has a disheveled appearance. Eye contact is appropriate. He continues to demonstrate some psychomotor slowing. He is reporting no suicidal or homicidal ideation. He is endorsing no auditory or visual hallucinations. He endorses no delusional thought however he does continue to make statements indicating paranoid thinking at times or disorganized delusions. Insight and judgment limited. He demonstrates no verbal or physical aggressiveness during our session. He demonstrates no abnormal involuntary movements. He remains oriented to person place and date. Plan: The patient will continue on the psychotropic medication as written. We will continue to assess him for safety and his ability to remain off of one-to- one supervision. Social work will contact his father to get more information regarding baseline function.
[2018-03-17] MEDS: PALIPERIDONE 6 MG TAB.ER.24 PO SCH (21:59)
[2018-03-17] MEDS: traZODone HCL 100 MG TAB PO SCH (22:00)
[2018-03-18] MEDS: MELATONIN 3 MG TABLET PO PRN ×2 (00:39→19:56)
[2018-03-18] MEDS: NICOTINE 14MG/24HR PATCH TRANSDERM SCH (08:19)
[2018-03-18] MEDS: DIVALPROEX 500 MG TABLET.DR PO SCH ×2 (08:19→19:56)
--- NOTE | 2018-03-18 10:59 | P.PN ---
Progress Note - Text Interval history: The patient is found in group he follows me to an interview room. He remains off of one-to-one supervision. There is no report of any aggressive behavior. He will still occasionally make delusional statements. He has been compliant with medication. At various times he is described a desire to reside with his father in [place] and at other times his mother. Social work is still attempting to contact his father to discuss further. The patient has not received any Haldol and he did not use any Ativan yesterday. Mental status exam: The patient is alert he is cooperative he is easily directed. He is reporting his mood is "better every day" he is endorsing no hallucinations. He denies having any delusional thoughts but he will make some spontaneous statements that appear delusional in nature. He is fully oriented to person place and date. He demonstrates no verbal or physical aggressiveness. He demonstrates no abnormal involuntary movements. He states he has no suicidal ideation intent or plan and has no homicidal ideation intent or plan. Insight and judgment are slowly improving. Affect is more expressive. Plan: The patient will continue on his current medication. We'll monitor him for safety. We will begin to plan for discharge early next week if he continues to demonstrate stability. Social work continues to try to reach his father. Vital signs reviewed.
[2018-03-18] MEDS: LORazepam 1 MG TAB PO PRN (19:11)
[2018-03-18] MEDS: traZODone HCL 100 MG TAB PO SCH (19:56)
[2018-03-18] MEDS: PALIPERIDONE 6 MG TAB.ER.24 PO SCH (19:56)
[2018-03-19] MEDS: DIVALPROEX 500 MG TABLET.DR PO SCH ×2 (09:26→20:50)
[2018-03-19] MEDS: NICOTINE 14MG/24HR PATCH TRANSDERM SCH (09:26)
[2018-03-19] MEDS ORDERED: PALIPERIDONE IM 234 MG/1.5 ML SYG IM STA (10:24)
--- NOTE | 2018-03-19 10:58 | P.PN ---
Progress Note - Text Interval history: The patient is found in the hallway he follows me to an interview room. He reports his mood has been stable. He slept 8 hours last evening. Appetite stable. He remains compliant with his medication. Staff report that the patient continues to make some delusional statements throughout the day. He has demonstrated no agitated behavior. For several days now he has been successful without one-to-one supervision. We discussed the discharge plan of returning to [place] with his father. He will assist social work in trying to reach his father via phone. Mental status exam: The patient is alert he is dressed in his own clothing. He has a disheveled appearance hygiene is adequate. He reports his mood is good. He denies having any suicidal or homicidal ideation intent or plan. He is reporting no auditory or visual hallucinations. He is endorsing no specific delusions however he does continue to spontaneously reports some delusional thought content. He demonstrates no aggressive behavior. He demonstrates no abnormal involuntary movements. Insight and judgment slowly improving. He remains oriented to person place and date. He is able to again outlying goals for himself upon discharge which include maintaining sobriety, getting a job, and residing with his father. Plan: The patient will continue on his current medications I will initiate Bianchi sustenna 234 mg today. We will plan to give the second dose prior to his discharge early next week. Vital signs reviewed. We'll continue to monitor him for safety and encourage his participation in the milieu.
[2018-03-19] MEDS: traZODone HCL 100 MG TAB PO SCH (20:50)
[2018-03-19] MEDS: PALIPERIDONE 6 MG TAB.ER.24 PO SCH (20:50)
[2018-03-19] MEDS ORDERED: MELATONIN 3 MG TABLET ONE (21:48)
[2018-03-19] MEDS: MELATONIN 3 MG TABLET PO PRN (21:49)
[2018-03-20] MEDS: DIVALPROEX 500 MG TABLET.DR PO SCH ×2 (08:09→20:50)
[2018-03-20] MEDS: NICOTINE 14MG/24HR PATCH TRANSDERM SCH (08:09)
--- NOTE | 2018-03-20 10:19 | P.PN ---
Progress Note - Text Interval history: The patient is found in group he follows me to an interview room. He reports feeling tired today. He states he was not successful in reaching his father yesterday. Social work notes reviewed. He states that he slept last night appetite is stable. He is looking forward to a potential discharge early next week. He does feel that his medications making him feel tired during the day and we discussed the transition from the oral to the injectable form. We discussed changing the Depakote to the extended release at bedtime but he does not wish to change that dosing at this time. Mental status exam: The patient is alert he is tired appearing. He seated calmly hygiene is adequate. He has a disheveled appearance he is dressed in his own clothing. He has spontaneous speech. He demonstrates some psychomotor slowing today. He is reporting no suicidal or homicidal ideation. He demonstrates no flight of ideas or loose associations. He is fairly linear in terms of answering questions. He demonstrates no verbal or physical aggressiveness he demonstrates no abnormal involuntary movements. He is endorsing no auditory or visual hallucinations. He does not spontaneously verbalize any delusional content although it likely persists. Insight and judgment slowly improving. Plan: The patient will continue on his current medications however I will reduce the invega to 9 mg at bedtime as he is now received the initial dose of Invega Sustenna. We will plan to give him his second dose prior to his discharge. We will continue to taper down the oral dose of invega. We will continue to consider switching the Depakote to the extended release form at bedtime to minimize daytime sedation. Vital signs reviewed. We continue to plan for possible discharge early next week. Social work will continue aching efforts to contact his father.
[2018-03-20] MEDS: PALIPERIDONE 3 MG TAB.ER.24 PO SCH (20:50)
[2018-03-20] MEDS: MELATONIN 3 MG TABLET PO PRN (20:50)
[2018-03-20] MEDS: traZODone HCL 100 MG TAB PO SCH (20:50)
[2018-03-21] MEDS: NICOTINE 14MG/24HR PATCH TRANSDERM SCH (08:21)
[2018-03-21] MEDS: DIVALPROEX 500 MG TABLET.DR PO SCH ×2 (08:22→20:04)
--- NOTE | 2018-03-21 09:12 | P.PN ---
Progress Note - Text Interval history: The patient is found in group he follows me to an interview room. He is excited that his father is on his way to pick him up from [place]. The patient reported having no problems with in the last 24 hours. Staff report there's been no agitated behavior. The patient hasn't required any as needed medication. He is reporting no thoughts of harming himself or harming others. He states sleep appetite have been stable. He feels more alert this morning compared to prior days. This may be due to the reduction of the bedtime invega dose. Mental status exam: The patient is alert he is dressed in hospital gowns. Hygiene is adequate. Eye contact is appropriate speech is fluent and spontaneous. He is reporting no hallucinations. He denies having any command hallucinations. He endorses no specific delusions. He is does still make some unrelated or bizarre statements at times. He demonstrates no threatening behavior. He demonstrates no abnormal involuntary movements. Insight and judgment slowly improving. He is oriented to person place and date. He is able to demonstrate an increased range of affect. Plan: The patient will continue on his current medications. We will continue to decrease the invega oral dose as he is on Invega Sustenna. We will plan to give him a second injection prior to discharge. We will monitor him for safety. Vital signs are reviewed.
[2018-03-21] MEDS: MELATONIN 3 MG TABLET PO PRN (20:05)
[2018-03-21] MEDS: PALIPERIDONE 3 MG TAB.ER.24 PO SCH (20:05)
[2018-03-21] MEDS: traZODone HCL 100 MG TAB PO SCH (20:05)
[2018-03-22] MEDS: NICOTINE 14MG/24HR PATCH TRANSDERM SCH (09:15)
[2018-03-22] MEDS: DIVALPROEX 500 MG TABLET.DR PO SCH ×2 (09:15→20:02)
[2018-03-22] MEDS: LORazepam 1 MG TAB PO PRN (09:15)
--- NOTE | 2018-03-22 09:48 | P.PN ---
Progress Note - Text Interval history: The patient is found in the hallway he follows me to an interview room. He states he is doing fine. He reports he feels better each day in his brain is getting back to normal. Again there is been no agitated behavior. We discussed reducing the oral dose of Invega further. If things go as planned we anticipate a discharge tomorrow if his father arise from [place] to pick him up. Mental status exam: The patient is alert he is mildly tired appearing. He is dressed in his own clothing hygiene is adequate he has a disheveled appearance. He is reporting no suicidal or homicidal ideation intent or plan. He is reporting no auditory or visual hallucinations. He endorses no specific delusions but he does spontaneously verbalize some disorganized delusional content. Her is no verbal or physical aggressiveness demonstrated. He demonstrates no abnormal involuntary movements. Insight and judgment improving. He remains oriented to person place and date. Plan: The patient will continue on his current medications however I will reduce the invega to 6 mg at bedtime. We will give him the second dose of Invega Sustenna prior to discharge. We will continue to monitor him for safety and encourage his participation in the milieu. Vital signs reviewed.
[2018-03-22] MEDS: traZODone HCL 100 MG TAB PO SCH (20:02)
[2018-03-22] MEDS: MELATONIN 3 MG TABLET PO PRN (20:03)
[2018-03-22] MEDS ORDERED: PALIPERIDONE 6 MG TAB.ER.24 PO SCH (21:00)
[2018-03-23 06:42] VITALS: BP 124/71; PULSE 92; RESP 14; TEMP 98
[2018-03-23] MEDS: NICOTINE 14MG/24HR PATCH TRANSDERM SCH (08:13)
[2018-03-23] MEDS: DIVALPROEX 500 MG TABLET.DR PO SCH (08:13)
[2018-03-23] MEDS ORDERED: PALIPERIDONE IM 156 MG/ML SYG IM ONE (09:49)
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
== END 2018-03-23 14:09 | disposition home or self-care (01) | DRG 885 ==
LOC: EC 12:50 → 3MHU 15:26
PROVIDERS: ADMIT Psychiatry & Neurology Psychiatry; ATTEND Psychiatry & Neurology Psychiatry
DX: F25.0 Schizoaffective disorder, bipolar type (principal); R45.851 Suicidal ideations; R45.850 Homicidal ideations; F12.90 Cannabis use, unspecified, uncomplicated; Z71.6 Tobacco abuse counseling; F17.200 Nicotine dependence, unspecified, uncomplicated; F41.9 Anxiety disorder, unspecified; D72.829 Elevated white blood cell count, unspecified; F90.9 Attention-deficit hyperactivity disorder, unspecified type; F15.11 Other stimulant abuse, in remission; F51.4 Sleep terrors [night terrors]; R21 Rash and other nonspecific skin eruption; R45.1 Restlessness and agitation; G47.9 Sleep disorder, unspecified; Z91.410 Personal history of adult physical and sexual abuse; Z82.49 Family history of ischemic heart disease and other diseases of the circulatory system; Z80.1 Family history of malignant neoplasm of trachea, bronchus and lung; Z80.8 Family history of malignant neoplasm of other organs or systems
CPT/HCPCS: 80053; 80061; 80164; 80306; 81001; 82075; 83036; 84443; 84450; 84460; 84484; 85025; 85027; 85379; 93005; 96372; 99285